=== PATIENT | female | born 1990 | race Caucasian/White ===

== ENCOUNTER 2018-08-27 16:07 | Emergency (ER) | payer OTHER ==
[2018-08-27 16:27] VITALS: RESP 18; TEMP 98.3
--- NOTE | 2018-08-27 16:54 | XR ---
EXAMINATION TYPE: XR wrist complete LT DATE OF EXAM: 08/27/2018 COMPARISON: NONE HISTORY: Left wrist pain TECHNIQUE: 4 views FINDINGS: Carpal bones are intact. I see no fracture nor dislocation. There are no erosions. Joint sp aces are normal. IMPRESSION: Negative left wrist exam.
--- NOTE | 2018-08-27 16:55 | XR ---
EXAMINATION TYPE: XR chest 2V DATE OF EXAM: 08/27/2018 COMPARISON: NONE HISTORY: Chest pain TECHNIQUE: Frontal and lateral views of the chest are obtained. FINDINGS: Heart and mediastinum are normal. Lungs are clear. Diaphragm is normal. Bony thorax appear s normal. IMPRESSION: Normal chest.
--- NOTE | 2018-08-27 18:49 | ED ---
Chest Pain HPI - General Chief Complaint: Chest Pain Stated Complaint: Lt wrist injury/chest pain Time Seen by Provider: 08/27/18 18:08 Source: patient, RN notes reviewed, old records reviewed Mode of arrival: ambulatory Limitations: no limitations - History of Present Illness Initial Comments: This is a 28-year-old female the ER for evaluation, patient presented ER today for evaluation of few complaints. 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 Patient was seen in [facility] for evaluation of work-related injury and sent to ER for further evaluation. Patient himself is mainly just complaining of wrist pain currently. She denies any shortness of breath or any other significant complaints no history of heart disease. Patient has had blood pressures in the past but currently is not on any blood pressure medication. Denies any other injury. 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) Pain Location: left chest (SymptomsLeft chest) Pain Radiation: none Severity: mild Severity scale (1-10): 3 Quality: aching Consistency: now resolved (Chest pain is now resolved) Improves With: nothing Worsens With: nothing Context: trauma/injury Anginal Symptoms: nausea Other Symptoms: cough Treatments Prior to Arrival: none - Related Data Home Medications Medication Instructions Recorded Confirmed FLUoxetine HCL [PROzac] 80 mg PO DAILY 10/11/15 10/11/15 Gabapentin [Neurontin] 300 mg PO TID 10/11/15 10/11/15 HYDROcodone/APAP 7.5-325MG [[place] 1 tab PO Q6H 10/11/15 10/11/15 7.5-325] Phentermine HCl 2 tab PO DAILY 10/11/15 10/11/15 Spironolact/Hydrochlorothiazid 2 tab PO DAILY 10/11/15 10/11/15 [Aldactazide 25-25 MG] Topiramate [Trokendi Xr] 100 mg PO HS 10/11/15 10/11/15 Previous Rx's Medication Instructions Recorded Ciprofloxacin HCl [Cipro] 500 mg PO Q12HR #14 tablet 10/11/15 Phenazopyridine [Pyridium] 100 mg PO TID #6 tablet 10/11/15 Naproxen [Naprosyn] 500 mg PO Q12HR PRN #30 tab 08/27/18 Allergies Allergy/AdvReac Type Severity Reaction Status Date / Time latex AdvReac Rash/Hives Verified 08/27/18 19:04 Review of Systems ROS Statement: Those systems with pertinent positive or pertinent negative responses have been documented in the HPI. ROS Other: All systems not noted in ROS Statement are negative. EKG Findings - EKG Comments: EKG Findings:: EKG shows sinus rhythm rate of 60, NV 156, QRS 78, QTC 376 Past Medical History Additional Past Medical History / Comment(s): fibromyalgia, History of Any Multi-Drug Resistant Organisms: None Reported Past Surgical History: Orthopedic Surgery Additional Past Surgical History / Comment(s): bone spurs, abdominal surgery Past Psychological History: Anxiety, Bipolar Smoking Status: Former smoker Past Alcohol Use History: None Reported Past Drug Use History: None Reported General Exam - General Exam Comments Initial Comments: Swelling and edema of left wrist, patient is placed in splints Limitations: no limitations General appearance: alert, in no apparent distress Head exam: Present: atraumatic, normocephalic, normal inspection Eye exam: Present: normal appearance, PERRL, EOMI. Absent: scleral icterus, conjunctival injection, periorbital swelling ENT exam: Present: normal exam, mucous membranes moist Neck exam: Present: normal inspection. Absent: tenderness, meningismus, lymphadenopathy Respiratory exam: Present: normal lung sounds bilaterally. Absent: respiratory distress, wheezes, rales, rhonchi, stridor Cardiovascular Exam: Present: regular rate, normal rhythm, normal heart sounds. Absent: systolic murmur, diastolic murmur, rubs, gallop, clicks GI/Abdominal exam: Present: soft, normal bowel sounds. Absent: distended, tenderness, guarding, rebound, rigid Extremities exam: Present: normal inspection, full ROM, normal capillary refill. Absent: tenderness, pedal edema, joint swelling, calf tenderness Back exam: Present: normal inspection Neurological exam: Present: alert, oriented X3, CN II-XII intact Psychiatric exam: Present: normal affect, normal mood Skin exam: Present: warm, dry, intact, normal color. Absent: rash Course Vital Signs 08/27/18 16:23 Temperature 98.3 F Pulse Rate 68 Respiratory 18 Rate Blood Pressure 126/84 O2 Sat by Pulse 99 Oximetry Chest Pain MDM - MDM 28 female the ER with left wrist injury, patient given anti-inflammatories can be discharged home to follow-up with workers,. Disposition Clinical Impression: Left wrist sprain Disposition: HOME SELF-CARE Condition: Good Instructions: Wrist Sprain (ED) Prescriptions: Naproxen [Naprosyn] 500 mg PO Q12HR PRN #30 tab PRN Reason: Pain Is patient prescribed a controlled substance at d/c from ED?: No Referrals: Trevor Grove MD [Primary Care Provider] - 1-2 days
[2018-08-27] MEDS ORDERED: DEXAMETHASONE 4 MG TAB PO STA (19:14)
[2018-08-27] MEDS ORDERED: IBUPROFEN 800 MG TAB PO STA (19:14)
[2018-08-27 19:33] VITALS: BP 135/83; PULSE 71
== END 2018-08-27 19:34 | disposition home or self-care (01) ==
LOC: EC 16:07
DX: S63.502A Unspecified sprain of left wrist, initial encounter (principal); R07.9 Chest pain, unspecified; M79.7 Fibromyalgia; F31.9 Bipolar disorder, unspecified; F41.9 Anxiety disorder, unspecified; Z87.891 Personal history of nicotine dependence; Z79.891 Long term (current) use of opiate analgesic; Z79.899 Other long term (current) drug therapy; Z91.040 Latex allergy status; X58.XXXA Exposure to other specified factors, initial encounter; Y93.F2 Activity, caregiving, lifting; Y92.69 Other specified industrial and construction area as the place of occurrence of the external cause; Y99.0 Civilian activity done for income or pay
CPT/HCPCS: 93005; 73110; 71046; 99285; J8540

== ENCOUNTER → 2018-09-06 | Outpatient (CLI) | payer OTHER ==
--- NOTE | 2018-09-06 19:46 | XR ---
PROCEDURE: XR wrist complete LT - 4V DATE AND TIME: 09/06/2018 6:59 PM CLINICAL INDICATION: PHH; S63.502D TECHNIQUE: Department protocol + scaphoid view. COMPARISON: None FINDINGS: There is no fracture or malalignment. The soft tissues are unremarkable. IMPRESSION: NO ACUTE PROCESS.
== END | disposition home or self-care (01) ==
LOC: RADXRMAIN 18:45
PROVIDERS: ATTEND Emergency Medicine
DX: S63.502D Unspecified sprain of left wrist, subsequent encounter (principal)

== ENCOUNTER → 2018-09-28 | Outpatient (CLI) | payer OTHER ==
--- NOTE | 2018-10-01 00:24 | MR ---
EXAMINATION TYPE: MR wrist LT wo con DATE OF EXAM: 09/28/2018 COMPARISON: None HISTORY: Unspecified Sprain of Left Wrist Standard multiplanar, multisequence MRI departmental protocol Multiplanar, multisequence images of the left wrist were acquired. FINDINGS: The carpal bones appear intact. There is no evidence of a fracture. Visualized metacarpals appear intact. The intercarpal joint spaces are fairly normal. There is septated fluid collection ant erior to the radiocarpal joint on the lateral aspect adjacent to the radial styloid process. This is consistent with a synovial cyst. The flexor and extensor tendons of the wrist appear intact. The tria ngular cartilage appears intact. There is no evidence of a soft tissue mass. There is on the T2 image s mild increased signal in the distal scaphoid bone adjacent to the scaphoid trapezium joint. I see n o fracture of the scaphoid bone. IMPRESSION: No fracture seen. There is evidence of a bone bruise of the distal scaphoid bone. Scaphoid shows no f racture line. Small synovial cyst on the anterior aspect of the radiocarpal joint.
== END | disposition home or self-care (01) ==
LOC: RADMRIMAIN 06:08
PROVIDERS: ATTEND Emergency Medicine
DX: M71.332 Other bursal cyst, left wrist (principal); S63.502D Unspecified sprain of left wrist, subsequent encounter